=== PATIENT | male | born 1960 | race African-American/Black ===

== ENCOUNTER 2021-07-21 09:35 | Inpatient (IN) ==
[2021-07-21 10:00] LABS: ABS Basophils 0.1 10^3/ul (0-0.2); ABS Eosinophils 0.4 10^3/ul (0-0.6); ABS Lymphocytes 1.6 10^3/ul (1.0-4.8); ABS Monocytes 1.2 10^3/ul (0-0.8); ABS Neutrophils 11.7 10^3/ul (1.5-7.7); Eosinophil % 2.6 %; Hematocrit 41 % (42-52); Hemoglobin 13.6 g/dL (14.0-18.0); Mean Corpuscular HGB Conc 33 g/dL (31-36); Mean Corpuscular Hemoglobin 31 pg (27-31); Mean Corpuscular Volume 94 fL (80-94); Mean Platelet Volume 8.3 fL (7.4-10.4); Nucleated Red Blood Cells % 0.1; Platelet Count 320 10^3/uL (150-450); Red Blood Count 4.42 10^6 /uL (4.18-5.48); Red Cell Distribution Width 14 % (10-15)
[2021-07-21] MEDS ORDERED: nitroGLYCERIN DRIP 25,000 MCG/250 ML BTL IV SCH (10:00)
[2021-07-21 10:06] LABS: INR 1.12 (0.86-1.15)
[2021-07-21 10:19] LABS: ALT 35 U/L (7-52); AST 23 U/L (13-39); Albumin 4.1 g/dL (3.2-5.2); Albumin/Globulin Ratio 1.1 (1-3); Alkaline Phosphatase 55 U/L (35-149); Anion Gap 7 mmol/L (2-11); Blood Urea Nitrogen 14 mg/dL (6-24); CO2 Carbon Dioxide 32 mmol/L (22-32); Calcium 9.1 mg/dL (8.6-10.3); Chloride 97 mmol/L (101-111); Globulin 3.6 g/dL (2-4); Glucose 244 mg/dL (70-100); Potassium 3.8 mmol/L (3.5-5.0); Sodium 136 mmol/L (135-145); Total Protein 7.7 g/dL (6.4-8.9); eGFR CKD-EPI 70.9 (>60)
[2021-07-21 10:20] LABS: Troponin I 0.03 ng/mL (<0.03)
[2021-07-21] MEDS ORDERED: Morphine 4 MG/ML VIAL (1 ml) IV ONE (10:22)
[2021-07-21] MEDS ORDERED: Albuterol/Ipratropium NEB.SOL (2.5/0.5 MG) 3 ML NEB.SOLN INH PRN (11:40)
[2021-07-21] MEDS ORDERED: Iodixanol (CONTRAST) 320 MG/ML 100 ML SDV IV ONE (11:52)
[2021-07-21 12:03] LABS: Magnesium 1.7 mg/dL (1.9-2.7); Phosphorus 4.2 mg/dL (2.5-5.0)
[2021-07-21 12:10] LABS: PCO2 Arterial 62 mmHg (35-45); PO2 Arterial 108 mmHg (80-100)
[2021-07-21] MEDS: methylPREDNISolone SOD 40 mg/ml 1 ml VIAL IV SCH ×2 (12:11→20:27)
[2021-07-21] MEDS: cefTRIAXone 1 gm/50 mL NS BAG 1 GM/50 ML BAG IVPB SCH (12:15)
[2021-07-21 12:23] LABS: TSH Ultra Thyroid Stim Horm 0.75 mcIU/mL (0.34-5.60)
[2021-07-21] MEDS: Azithromycin 500 mg/250 ml NS 500 MG/250 ML BAG IVPB SCH (12:23)
[2021-07-21] MEDS: Enoxaparin 40 MG/0.4 ML SYR SUBCUT SCH (12:23)
[2021-07-21] MEDS ORDERED: Furosemide 40 mg/4 ml IV VIAL IV SLOW PU ONE (12:38)
[2021-07-21] MEDS ORDERED: Magnesium Sulfate 2 gm BAG 2 GM/50 ML BAG IVPB ONE (13:08)
[2021-07-21] MEDS ORDERED: Dextrose 50% Syringe 50 ml 25 GM/50 ML SYRINGE IV PUSH PRN (13:17)
[2021-07-21 13:49] LABS: Troponin I 0.03 ng/mL (<0.03)
[2021-07-21] MEDS: hydrALAZINE 20 mg/ml 1 ML Vial IV IV SLOW PU PRN (17:11)
[2021-07-21] MEDS ORDERED: Norepinephrine 16MCG/ML IVPRE 0 MCG/0 ML BAG IV ONE (18:09)
[2021-07-22] MEDS: hydrALAZINE 20 mg/ml 1 ML Vial IV IV SLOW PU PRN (02:59)
[2021-07-22] MEDS: methylPREDNISolone SOD 40 mg/ml 1 ml VIAL IV SCH (03:01)
[2021-07-22] MEDS ORDERED: Enalaprilat IV 1.25 mg/ml 2 ml VIAL (2.5 MG) IV ONE (04:14)
[2021-07-22 05:51] LABS: ABS Lymphocytes 0.4 10^3/ul (1.0-4.8); ABS Monocytes 0.1 10^3/ul (0-0.8); ABS Neutrophils 11.8 10^3/ul (1.5-7.7); Hematocrit 41 % (42-52); Hemoglobin 13.6 g/dL (14.0-18.0); Lymphocyte % 3.5 %; Mean Corpuscular HGB Conc 33 g/dL (31-36); Mean Corpuscular Hemoglobin 31 pg (27-31); Mean Corpuscular Volume 93 fL (80-94); Mean Platelet Volume 8.4 fL (7.4-10.4); Nucleated Red Blood Cells % 0.1; Platelet Count 255 10^3/uL (150-450); Red Blood Count 4.43 10^6 /uL (4.18-5.48); Red Cell Distribution Width 14 % (10-15); White Blood Count 12.3 10^3/uL (3.5-10.8)
[2021-07-22 06:06] LABS: Magnesium 2.1 mg/dL (1.9-2.7); Potassium 4.7 mmol/L (3.5-5.0)
[2021-07-22 06:12] LABS: Phosphorus 4.3 mg/dL (2.5-5.0)
[2021-07-22 06:26] LABS: eGFR CKD-EPI 82.6 (>60)
[2021-07-22] MEDS: Enoxaparin 40 MG/0.4 ML SYR SUBCUT SCH (10:52)
[2021-07-22] MEDS ORDERED: Furosemide 40 mg/4 ml IV VIAL IV ONE (11:54)
[2021-07-22] MEDS: cefTRIAXone 1 gm/50 mL NS BAG 1 GM/50 ML BAG IVPB SCH (12:41)
[2021-07-22] MEDS: Azithromycin 500 mg/250 ml NS 500 MG/250 ML BAG IVPB SCH (12:45)
[2021-07-23 06:25] LABS: ABS Lymphocytes 0.8 10^3/ul (1.0-4.8); ABS Monocytes 0.9 10^3/ul (0-0.8); ABS Neutrophils 11.5 10^3/ul (1.5-7.7); Hematocrit 39 % (42-52); Hemoglobin 12.7 g/dL (14.0-18.0); Lymphocyte % 6.3 %; Mean Corpuscular HGB Conc 33 g/dL (31-36); Mean Corpuscular Hemoglobin 31 pg (27-31); Mean Corpuscular Volume 94 fL (80-94); Mean Platelet Volume 8.8 fL (7.4-10.4); Nucleated Red Blood Cells % 0.1; Platelet Count 263 10^3/uL (150-450); Red Blood Count 4.14 10^6 /uL (4.18-5.48); Red Cell Distribution Width 14 % (10-15); White Blood Count 13.3 10^3/uL (3.5-10.8)
[2021-07-23 06:38] LABS: Magnesium 2.2 mg/dL (1.9-2.7); Phosphorus 4.6 mg/dL (2.5-5.0); Potassium 4.7 mmol/L (3.5-5.0); eGFR CKD-EPI 67.5 (>60)
[2021-07-23] MEDS: Insulin GLARGINE 100 un/ml 10 ml VIAL SUBCUT SCH (08:53)
[2021-07-23] MEDS ORDERED: Dextrose 50% Syringe 50 ml 25 GM/50 ML SYRINGE IV PUSH PRN (12:08)
[2021-07-23] MEDS ORDERED: Albuterol/Ipratropium RESP(NF) MDI (Combivent Respimat) INH PRN (12:24)
[2021-07-23] MEDS: cefTRIAXone 1 gm/50 mL NS BAG 1 GM/50 ML BAG IVPB SCH (12:54)
[2021-07-23] MEDS: Enoxaparin 40 MG/0.4 ML SYR SUBCUT SCH (12:55)
[2021-07-23] MEDS: Azithromycin 500 mg/250 ml NS 500 MG/250 ML BAG IVPB SCH (13:54)
[2021-07-23] MEDS ORDERED: Senna TAB 8.6 mg TAB PO PRN (17:33)
[2021-07-23] MEDS ORDERED: Polyethylene Glycol 3350 17 GM PACKET PO PRN (17:33)
[2021-07-23] MEDS: HYDROcodone/ACETAMIN 5/325 mg TAB PO PRN (18:14)
[2021-07-24] MEDS: PTO: Budesonide/Formote 160/4.5(NF) MDI INH SCH (07:42)
[2021-07-24 08:33] LABS: Hematocrit 41 % (42-52); Hemoglobin 13.6 g/dL (14.0-18.0); Mean Corpuscular HGB Conc 34 g/dL (31-36); Mean Corpuscular Hemoglobin 31 pg (27-31); Mean Corpuscular Volume 94 fL (80-94); Mean Platelet Volume 8.6 fL (7.4-10.4); Platelet Count 262 10^3/uL (150-450); Red Blood Count 4.34 10^6 /uL (4.18-5.48); Red Cell Distribution Width 14 % (10-15); White Blood Count 9.4 10^3/uL (3.5-10.8)
[2021-07-24 08:56] LABS: Blood Urea Nitrogen 27 mg/dL (6-24); CO2 Carbon Dioxide 35 mmol/L (22-32); Calcium 8.7 mg/dL (8.6-10.3); Chloride 96 mmol/L (101-111); Glucose 223 mg/dL (70-100); Sodium 132 mmol/L (135-145); eGFR CKD-EPI 73.9 (>60)
[2021-07-24] MEDS: Insulin GLARGINE 100 un/ml 10 ml VIAL SUBCUT SCH (08:58)
[2021-07-24 09:01] LABS: Anion Gap 1 mmol/L (2-11)
[2021-07-24 09:15] LABS: Troponin I 0.02 ng/mL (<0.03)
[2021-07-24 10:00] LABS: Magnesium 2.1 mg/dL (1.9-2.7)
[2021-07-24 10:18] LABS: Ferritin 328.2 ng/mL (24-336)
[2021-07-24] MEDS: HYDROcodone/ACETAMIN 5/325 mg TAB PO PRN ×2 (10:50→21:06)
[2021-07-24] MEDS: cefTRIAXone 1 gm/50 mL NS BAG 1 GM/50 ML BAG IVPB SCH (11:07)
[2021-07-24] MEDS: Enoxaparin 40 MG/0.4 ML SYR SUBCUT SCH (11:44)
[2021-07-24] MEDS: Azithromycin 500 mg/250 ml NS 500 MG/250 ML BAG IVPB SCH (11:45)
[2021-07-24 17:35] LABS: Glucose Confirmatory 409 mg/dL (70-100)
[2021-07-25 05:36] LABS: Calcium 8.9 mg/dL (8.6-10.3); Potassium 4.2 mmol/L (3.5-5.0)
[2021-07-25 05:41] LABS: eGFR CKD-EPI 78.1 (>60)
[2021-07-25] MEDS: PTO: Budesonide/Formote 160/4.5(NF) MDI INH SCH (07:24)
[2021-07-25] MEDS: HYDROcodone/ACETAMIN 5/325 mg TAB PO PRN (08:25)
[2021-07-25] MEDS ORDERED: Insulin GLARGINE 100 un/ml 10 ml VIAL SUBCUT SCH (09:00)
[2021-07-25] MEDS: Enoxaparin 40 MG/0.4 ML SYR SUBCUT SCH (12:17)
[2021-07-25] MEDS: cefTRIAXone 1 gm/50 mL NS BAG 1 GM/50 ML BAG IVPB SCH (12:20)
[2021-07-25] MEDS ORDERED: COVID-19 VACCINE, MRNA(MODERNA) BOOSTER/PF 50 MCG/0.25 ML IM ONE (12:30)
[2021-07-25 12:45] VITALS: BP 144/99
[2021-07-27 11:52] LABS: % Iron Saturation 24 % (14 - 50); Total Iron Binding Capacity 263 mcg/dL (250 - 400); Transferrin 223 mg/dL (200 - 360)
== END 2021-07-25 15:20 | disposition home or self-care (01) | DRG 291 ==
LOC: ED 09:35 → EDHOLD 11:43 → SUATTDRO 11:43 → ICU 13:14 → MEDTELE 07-22 15:25
PROVIDERS: ADMIT Internal Medicine Critical Care Medicine; ATTEND Hospitalist

== ENCOUNTER 2021-10-22 16:35 | Inpatient (IN) ==
[2021-10-22 17:07] LABS: ABS Basophils 0.1 10^3/ul (0-0.2); ABS Eosinophils 0.2 10^3/ul (0-0.6); ABS Lymphocytes 0.7 10^3/ul (1.0-4.8); ABS Monocytes 0.5 10^3/ul (0-0.8); ABS Neutrophils 6.3 10^3/ul (1.5-7.7); Eosinophil % 2.2 %; Hematocrit 35 % (42-52); Hemoglobin 11.5 g/dL (14.0-18.0); Lymphocyte % 9.2 %; Mean Corpuscular HGB Conc 33 g/dL (31-36); Mean Corpuscular Hemoglobin 30 pg (27-31); Mean Corpuscular Volume 91 fL (80-94); Mean Platelet Volume 8.5 fL (7.4-10.4); Nucleated Red Blood Cells % 0.1; Platelet Count 217 10^3/uL (150-450); Red Blood Count 3.83 10^6 /uL (4.18-5.48); Red Cell Distribution Width 13 % (10-15); White Blood Count 7.7 10^3/uL (3.5-10.8)
[2021-10-22 17:13] LABS: INR 1.21 (0.86-1.15)
[2021-10-22 17:36] LABS: Albumin 4.1 g/dL (3.2-5.2); Albumin/Globulin Ratio 1.4 (1-3); Calcium 9.1 mg/dL (8.6-10.3); Potassium 4.2 mmol/L (3.5-5.0); Total Bilirubin 1.4 mg/dL (0.2-1.0); Total Protein 7.1 g/dL (6.4-8.9); eGFR CKD-EPI 65.1 (>60)
[2021-10-22 18:31] LABS: High Sensitivity Troponin 1 Hr 12 pg/mL (<20)
[2021-10-22] MEDS ORDERED: Iodixanol (CONTRAST) 320 MG/ML 100 ML SDV IV ONE (18:39)
[2021-10-22] MEDS ORDERED: Furosemide 20 mg/2 ml IV VIAL IV SLOW PU ONE ×2 (20:19→23:36)
[2021-10-22] MEDS ORDERED: Enoxaparin 40 MG/0.4 ML SYR SUBCUT SCH (23:00)
[2021-10-22] MEDS ORDERED: Albuterol HFA INHALER 8 gm MDI INH PRN (23:30)
[2021-10-23 06:07] LABS: ABS Eosinophils 0.2 10^3/ul (0-0.6); ABS Lymphocytes 0.9 10^3/ul (1.0-4.8); ABS Monocytes 0.5 10^3/ul (0-0.8); ABS Neutrophils 4.3 10^3/ul (1.5-7.7); Eosinophil % 3.9 %; Hematocrit 35 % (42-52); Hemoglobin 11.7 g/dL (14.0-18.0); Lymphocyte % 15.4 %; Mean Corpuscular HGB Conc 33 g/dL (31-36); Mean Corpuscular Hemoglobin 30 pg (27-31); Mean Corpuscular Volume 90 fL (80-94); Mean Platelet Volume 8.5 fL (7.4-10.4); Nucleated Red Blood Cells % 0.1; Platelet Count 202 10^3/uL (150-450); Red Blood Count 3.91 10^6 /uL (4.18-5.48); Red Cell Distribution Width 13 % (10-15)
[2021-10-23 06:37] LABS: Calcium 9.2 mg/dL (8.6-10.3); Magnesium 1.7 mg/dL (1.9-2.7); Potassium 3.9 mmol/L (3.5-5.0); eGFR CKD-EPI 65.1 (>60)
[2021-10-23] MEDS: Mometasone/Formoter 100/5 MDI INH SCH ×2 (08:32→19:50)
[2021-10-23] MEDS ORDERED: NFT: Empaglifozin 10 mg TAB (NF) PO SCH (09:00)
[2021-10-23] MEDS ORDERED: Furosemide 40 mg/4 ml IV VIAL IV SCH (09:00)
[2021-10-23] MEDS ORDERED: Aspirin EC 81 mg TAB.EC (enteric coated) PO SCH (09:00)
[2021-10-23] MEDS ORDERED: DULoxetine DR 30 mg CAP PO SCH (09:00)
[2021-10-23] MEDS ORDERED: Perflutren Lipid Microsphere 3 ML VIAL ONE (10:27)
[2021-10-23 15:53] VITALS: BP 156/94
== END 2021-10-23 17:40 | disposition home or self-care (01) | DRG 194 ==
LOC: ED 16:35 → MED 22:07 → SUATTDRO 22:07 → MED 23:21
PROVIDERS: ADMIT Internal Medicine; ATTEND Internal Medicine

== ENCOUNTER 2022-09-09 11:56 | Inpatient (IN) ==
[2022-09-09] MEDS ORDERED: cefTRIAXone 1 gm/50 mL D5W 1 GM/50 ML BAG IV ONE (12:03)
[2022-09-09] MEDS ORDERED: Albuterol/Ipratropium NEB.SOL (2.5/0.5 MG) 3 ML NEB.SOLN INH ONE (12:03)
[2022-09-09] MEDS ORDERED: Azithromycin 500 mg/250 ml NS 500 MG/250 ML BAG IVPB ONE (12:03)
[2022-09-09 12:16] LABS: ABS Eosinophils 0.1 10^3/ul (0-0.6); ABS Lymphocytes 0.7 10^3/ul (1.0-4.8); ABS Monocytes 0.6 10^3/ul (0-0.8); ABS Neutrophils 6.7 10^3/ul (1.5-7.7); Eosinophil % 1.6 %; Hematocrit 40 % (42-52); Hemoglobin 12.5 g/dL (14.0-18.0); Lymphocyte % 8.3 %; Mean Corpuscular HGB Conc 31 g/dL (31-36); Mean Corpuscular Hemoglobin 28 pg (27-31); Mean Corpuscular Volume 90 fL (80-94); Mean Platelet Volume 9.1 fL (7.4-10.4); Platelet Count 207 10^3/uL (150-450); Red Cell Distribution Width 15 % (10-15); White Blood Count 8.2 10^3/uL (3.5-10.8)
[2022-09-09 12:19] LABS: PCO2 Arterial 61 mmHg (35-45); PO2 Arterial 221 mmHg (80-100)
[2022-09-09 12:41] LABS: High Sens Troponin Baseline 18 pg/mL (<20)
[2022-09-09 12:50] LABS: ALT 15 U/L (7-52); AST 16 U/L (13-39); Albumin 4.1 g/dL (3.2-5.2); Albumin/Globulin Ratio 1.4 (1-3); Alkaline Phosphatase 51 U/L (35-149); Blood Urea Nitrogen 12 mg/dL (6-24); C Reactive Protein 8.59 mg/L (<8.01); CO2 Carbon Dioxide 39 mmol/L (22-32); Calcium 8.9 mg/dL (8.6-10.3); Chloride 100 mmol/L (101-111); Creatinine, Serum 1.23 mg/dL (0.67-1.17); Globulin 2.9 g/dL (2-4); Glucose 94 mg/dL (70-100); Magnesium 1.9 mg/dL (1.9-2.7); Potassium 4.2 mmol/L (3.5-5.0); Sodium 139 mmol/L (135-145); eGFR CKD-EPI 66.4 (>60)
[2022-09-09] MEDS ORDERED: Iodixanol (CONTRAST) 320 MG/ML 100 ML SDV IV ONE (13:10)
[2022-09-09 13:49] LABS: High Sensitivity Troponin 1 Hr 17 pg/mL (<20)
[2022-09-09] MEDS ORDERED: Furosemide 40 mg/4 ml IV VIAL IV ONE ×2 (15:20→20:00)
[2022-09-09] MEDS: Enoxaparin 40 MG/0.4 ML SYR SUBCUT SCH (20:10)
[2022-09-09 23:16] LABS: Calcium 9.1 mg/dL (8.6-10.3); Creatinine, Serum 1.35 mg/dL (0.67-1.17); Magnesium 1.8 mg/dL (1.9-2.7); Potassium 4.4 mmol/L (3.5-5.0); eGFR CKD-EPI 59.4 (>60)
[2022-09-09] MEDS ORDERED: Magnesium Sulfate 2 gm BAG 2 GM/50 ML BAG IVPB ONE (23:29)
[2022-09-09] MEDS: Mometasone/Formoter 200/5 MDI INH SCH (23:53)
[2022-09-10 06:59] LABS: ABS Lymphocytes 0.4 10^3/ul (1.0-4.8); ABS Monocytes 0.4 10^3/ul (0-0.8); ABS Neutrophils 6.4 10^3/ul (1.5-7.7); Hematocrit 39 % (42-52); Hemoglobin 12.4 g/dL (14.0-18.0); Lymphocyte % 5.1 %; Mean Corpuscular HGB Conc 32 g/dL (31-36); Mean Corpuscular Hemoglobin 29 pg (27-31); Mean Corpuscular Volume 90 fL (80-94); Mean Platelet Volume 9.6 fL (7.4-10.4); Platelet Count 227 10^3/uL (150-450); Red Blood Count 4.28 10^6 /uL (4.18-5.48); Red Cell Distribution Width 15 % (10-15); White Blood Count 7.2 10^3/uL (3.5-10.8)
[2022-09-10 07:24] LABS: Calcium 9.2 mg/dL (8.6-10.3); Creatinine, Serum 1.42 mg/dL (0.67-1.17); Magnesium 2.3 mg/dL (1.9-2.7); Potassium 4.4 mmol/L (3.5-5.0); eGFR CKD-EPI 55.9 (>60)
[2022-09-10] MEDS: Mometasone/Formoter 200/5 MDI INH SCH ×2 (08:37→20:05)
[2022-09-10] MEDS: DULoxetine DR 30 mg CAP PO SCH (09:28)
[2022-09-10] MEDS: HYDROcodone/ACETAMIN 5/325 mg TAB PO PRN ×3 (09:29→20:32)
[2022-09-10] MEDS ORDERED: Furosemide 40 mg/4 ml IV VIAL IV ONE (09:37)
[2022-09-10] MEDS ORDERED: Sulfur Hexaflouride MICROSPHR 25 MG VIAL ONE (13:20)
[2022-09-10] MEDS ORDERED: NF: Albuterol/Ipratropium RESP(NF) MDI (Combivent Respimat) INH PRN (14:51)
[2022-09-10] MEDS ORDERED: Albuterol HFA INHALER 8 gm MDI INH PRN (15:30)
[2022-09-10] MEDS: Enoxaparin 40 MG/0.4 ML SYR SUBCUT SCH (18:34)
[2022-09-11 06:05] LABS: Hematocrit 37 % (42-52); Hemoglobin 12.3 g/dL (14.0-18.0); Mean Corpuscular HGB Conc 33 g/dL (31-36); Mean Corpuscular Hemoglobin 30 pg (27-31); Mean Corpuscular Volume 90 fL (80-94); Mean Platelet Volume 9.6 fL (7.4-10.4); Platelet Count 214 10^3/uL (150-450); Red Blood Count 4.15 10^6 /uL (4.18-5.48); Red Cell Distribution Width 15 % (10-15); White Blood Count 7.5 10^3/uL (3.5-10.8)
[2022-09-11 06:21] LABS: Blood Urea Nitrogen 26 mg/dL (6-24); CO2 Carbon Dioxide 40 mmol/L (22-32); Chloride 99 mmol/L (101-111); Creatinine, Serum 1.31 mg/dL (0.67-1.17); Glucose 118 mg/dL (70-100); Magnesium 2.3 mg/dL (1.9-2.7); Potassium 4.4 mmol/L (3.5-5.0); Sodium 139 mmol/L (135-145); eGFR CKD-EPI 61.5 (>60)
[2022-09-11] MEDS: Mometasone/Formoter 200/5 MDI INH SCH ×2 (08:13→19:36)
[2022-09-11] MEDS: DULoxetine DR 30 mg CAP PO SCH (08:46)
[2022-09-11] MEDS: HYDROcodone/ACETAMIN 5/325 mg TAB PO PRN ×2 (08:46→20:33)
[2022-09-11 10:51] LABS: % Iron Saturation 16 % (15-55); Iron 58 ug/dL (50-212); Total Iron Binding Capacity 363 mcg/dL (250-450); Transferrin 259 mg/dL (203-362); Unsaturated Iron Binding 305 ug/dL
[2022-09-11 11:01] LABS: TSH Ultra Thyroid Stim Horm 1.35 mcIU/mL (0.34-5.60)
[2022-09-11 11:06] LABS: Free T4 0.83 ng/dL (0.61-1.12)
[2022-09-11 11:09] LABS: Ferritin 100.7 ng/mL (24-336)
[2022-09-11] MEDS: Bumetanide IV 0.25 MG/ML 4 ml VIAL (1 mg) IV SLOW PU SCH ×2 (11:10→20:21)
[2022-09-11] MEDS: Enoxaparin 40 MG/0.4 ML SYR SUBCUT SCH (20:19)
[2022-09-11] MEDS ORDERED: Bumetanide IV 0.25 MG/ML 4 ml VIAL (1 mg) IV SLOW PU SCH (21:00)
[2022-09-12 07:07] LABS: ABS Eosinophils 0.1 10^3/ul (0-0.6); ABS Monocytes 0.7 10^3/ul (0-0.8); ABS Neutrophils 4.4 10^3/ul (1.5-7.7); Eosinophil % 2.4 %; Hematocrit 40 % (42-52); Hemoglobin 12.6 g/dL (14.0-18.0); Lymphocyte % 15.7 %; Mean Corpuscular HGB Conc 32 g/dL (31-36); Mean Corpuscular Hemoglobin 29 pg (27-31); Mean Corpuscular Volume 91 fL (80-94); Mean Platelet Volume 9.4 fL (7.4-10.4); Platelet Count 210 10^3/uL (150-450); Red Cell Distribution Width 15 % (10-15); White Blood Count 6.2 10^3/uL (3.5-10.8)
[2022-09-12 07:10] LABS: Calcium 8.8 mg/dL (8.6-10.3); Creatinine, Serum 1.2 mg/dL (0.67-1.17); Potassium 4.4 mmol/L (3.5-5.0); eGFR CKD-EPI 68.4 (>60)
[2022-09-12] MEDS: Mometasone/Formoter 200/5 MDI INH SCH ×2 (07:26→21:05)
[2022-09-12] MEDS: HYDROcodone/ACETAMIN 5/325 mg TAB PO PRN ×2 (09:37→20:29)
[2022-09-12] MEDS: DULoxetine DR 30 mg CAP PO SCH (09:37)
[2022-09-12] MEDS: Bumetanide IV 0.25 MG/ML 4 ml VIAL (1 mg) IV SLOW PU SCH ×2 (09:43→20:29)
[2022-09-12] MEDS: Enoxaparin 40 MG/0.4 ML SYR SUBCUT SCH (20:29)
[2022-09-13 06:29] LABS: Calcium 8.9 mg/dL (8.6-10.3); Creatinine, Serum 1.28 mg/dL (0.67-1.17); Potassium 4.5 mmol/L (3.5-5.0); eGFR CKD-EPI 63.3 (>60)
[2022-09-13] MEDS: Mometasone/Formoter 200/5 MDI INH SCH ×2 (07:33→19:26)
[2022-09-13] MEDS: Bumetanide IV 0.25 MG/ML 4 ml VIAL (1 mg) IV SLOW PU SCH (08:36)
[2022-09-13] MEDS: DULoxetine DR 30 mg CAP PO SCH (08:36)
[2022-09-13] MEDS: HYDROcodone/ACETAMIN 5/325 mg TAB PO PRN ×2 (08:49→20:42)
[2022-09-13] MEDS: Iron Sucrose 200 MG in NS 0.9% 100 ml BAG 100 ML IVPB SCH (17:45)
[2022-09-13] MEDS: Enoxaparin 40 MG/0.4 ML SYR SUBCUT SCH (20:37)
[2022-09-14 06:16] LABS: Calcium 9.1 mg/dL (8.6-10.3); Creatinine, Serum 1.18 mg/dL (0.67-1.17); Magnesium 2.1 mg/dL (1.9-2.7); Potassium 4.5 mmol/L (3.5-5.0); eGFR CKD-EPI 69.8 (>60)
[2022-09-14] MEDS: Mometasone/Formoter 200/5 MDI INH SCH ×2 (07:47→19:31)
[2022-09-14] MEDS: Iron Sucrose 200 MG in NS 0.9% 100 ml BAG 100 ML IVPB SCH (08:52)
[2022-09-14] MEDS: DULoxetine DR 30 mg CAP PO SCH (08:53)
[2022-09-14] MEDS: HYDROcodone/ACETAMIN 5/325 mg TAB PO PRN (08:54)
[2022-09-14] MEDS ORDERED: HYDROcodone/ACETAMIN 5/325 mg TAB PO PRN (13:31)
[2022-09-14] MEDS: Enoxaparin 40 MG/0.4 ML SYR SUBCUT SCH (19:25)
[2022-09-15 05:53] LABS: ABS Eosinophils 0.1 10^3/ul (0-0.6); ABS Lymphocytes 0.9 10^3/ul (1.0-4.8); ABS Monocytes 0.7 10^3/ul (0-0.8); ABS Neutrophils 5.2 10^3/ul (1.5-7.7); Eosinophil % 1.9 %; Hematocrit 39 % (42-52); Hemoglobin 12.9 g/dL (14.0-18.0); Lymphocyte % 13.2 %; Mean Corpuscular HGB Conc 33 g/dL (31-36); Mean Corpuscular Hemoglobin 30 pg (27-31); Mean Corpuscular Volume 90 fL (80-94); Platelet Count 213 10^3/uL (150-450); Red Blood Count 4.36 10^6 /uL (4.18-5.48); Red Cell Distribution Width 15 % (10-15); White Blood Count 7.1 10^3/uL (3.5-10.8)
[2022-09-15 06:09] LABS: Calcium 9.1 mg/dL (8.6-10.3); Creatinine, Serum 1.23 mg/dL (0.67-1.17); Magnesium 2.1 mg/dL (1.9-2.7); Potassium 4.4 mmol/L (3.5-5.0); eGFR CKD-EPI 66.4 (>60)
[2022-09-15] MEDS: Mometasone/Formoter 200/5 MDI INH SCH ×2 (07:20→19:20)
[2022-09-15] MEDS: DULoxetine DR 30 mg CAP PO SCH (10:04)
[2022-09-15] MEDS: Iron Sucrose 200 MG in NS 0.9% 100 ml BAG 100 ML IVPB SCH (10:08)
[2022-09-15 14:08] VITALS: BP 121/78
== END 2022-09-15 17:05 | disposition home or self-care (01) | DRG 291 ==
LOC: ED 11:56 → SUATTDRO 17:17 → EDHOLD 17:17 → MEDTELE 21:21
PROVIDERS: ADMIT Surgery; ATTEND Internal Medicine

== ENCOUNTER 2023-01-24 20:11 | Inpatient (IN) ==
[2023-01-24 21:07] LABS: ABS Eosinophils 0.3 10^3/uL (0.0-0.5); ABS Lymphocytes 1.2 10^3/uL (1.0-4.8); ABS Monocytes 1.1 10^3/uL (0.0-1.1); ABS Neutrophils 6.1 10^3/uL (1.5-7.6); ABS Nucleated RBC 0.02 10^3/ul; Eosinophil % 3.2 %; Hemoglobin 14.3 g/dL (13.2-16.3); Mean Corpuscular Hemoglobin 31.1 pg (27-33); Mean Corpuscular Hgb Conc 32.5 g/dL (31-36); Mean Corpuscular Volume 95.7 fL (80-97); Mean Platelet Volume 9.3 fL (7.5-11.2); Nucleated Red Blood Cells % 0.3 /100 WBC (0.0-0.4); Platelet Count 160 10^3/uL (150-450); Red Blood Count 4.59 10^6/uL (4.06-5.63); Red Cell Distribution Width 14.8 % (12-17); White Blood Count 8.8 10^3/uL (3.6-10.2)
[2023-01-24 21:35] LABS: Albumin 3.8 g/dL (3.2-5.2); Calcium 8.9 mg/dL (8.6-10.3); Total Bilirubin 0.7 mg/dL (0.2-1.0)
[2023-01-24 21:40] LABS: Albumin/Globulin Ratio 1.2 (1-3); Globulin 3.1 g/dL (2-4); Total Protein 6.9 g/dL (6.4-8.9)
[2023-01-24 21:43] LABS: Creatinine, Serum 1.59 mg/dL (0.67-1.17); Potassium 4.5 mmol/L (3.5-5.0); eGFR CKD-EPI 48.5 (>60)
[2023-01-24 22:32] LABS: High Sensitivity Troponin 1 Hr 27 pg/mL (<20)
[2023-01-24] MEDS ORDERED: Furosemide 100 mg/10 ml IV VIAL IV ONE (23:20)
[2023-01-24] MEDS ORDERED: Morphine 4 MG/ML VIAL (1 ml) IV ONE (23:55)
[2023-01-25] MEDS ORDERED: PAIN RELIEVING RUB (MENTHOL/SALICYLATE) 1 APPLIC TUBE TOPICAL PRN (00:17)
[2023-01-25] MEDS ORDERED: Morphine 4 MG/ML VIAL (1 ml) IV ONE (00:31)
[2023-01-25] MEDS ORDERED: Albuterol/Ipratropium RESP(NF) MDI (Combivent Respimat) INH PRN (00:47)
[2023-01-25] MEDS ORDERED: Albuterol/Ipratropium NEB.SOL (2.5/0.5 MG) 3 ML NEB.SOLN INH PRN (00:47)
[2023-01-25] MEDS ORDERED: Budesonide/Formote 160/4.5(NF) MDI INH SCH (01:00)
[2023-01-25] MEDS: oxyCODONE/Acetamin 5/325 mg TAB PO PRN ×4 (02:59→21:40)
[2023-01-25] MEDS: Mometasone/Formoter 200/5 MDI INH SCH ×2 (03:03→19:30)
[2023-01-25] MEDS: Enoxaparin 40 MG/0.4 ML SYR SUBCUT SCH (07:53)
[2023-01-25 07:55] LABS: ABS Basophils 0.1 10^3/uL (0.0-0.1); ABS Eosinophils 0.3 10^3/uL (0.0-0.5); ABS Lymphocytes 1.4 10^3/uL (1.0-4.8); ABS Monocytes 1.3 10^3/uL (0.0-1.1); ABS Neutrophils 6.4 10^3/uL (1.5-7.6); ABS Nucleated RBC 0.02 10^3/ul; Eosinophil % 3.2 %; Hematocrit 40.5 % (38-53); Hemoglobin 13.7 g/dL (13.2-16.3); Lymphocyte % 14.8 %; Mean Corpuscular Hemoglobin 30.6 pg (27-33); Mean Corpuscular Hgb Conc 33.9 g/dL (31-36); Mean Corpuscular Volume 90.3 fL (80-97); Mean Platelet Volume 9.1 fL (7.5-11.2); Nucleated Red Blood Cells % 0.2 /100 WBC (0.0-0.4); Platelet Count 197 10^3/uL (150-450); Red Blood Count 4.48 10^6/uL (4.06-5.63); Red Cell Distribution Width 14.5 % (12-17); White Blood Count 9.4 10^3/uL (3.6-10.2)
[2023-01-25] MEDS ORDERED: Bumetanide IV 0.25 MG/ML 4 ml VIAL (1 mg) IV SLOW PU SCH (08:00)
[2023-01-25] MEDS: DULoxetine DR 30 mg CAP PO SCH (08:02)
[2023-01-25] MEDS: Cholecalciferol (VIT D3) 1,000 unit TAB PO SCH (08:02)
[2023-01-25] MEDS: Lidocaine PATCH 5% PATCH TRANSDERM SCH (08:03)
[2023-01-25 08:07] LABS: Albumin 3.7 g/dL (3.2-5.2); Albumin/Globulin Ratio 1.1 (1-3); Calcium 8.7 mg/dL (8.6-10.3); Creatinine, Serum 1.5 mg/dL (0.67-1.17); Globulin 3.4 g/dL (2-4); Magnesium 1.9 mg/dL (1.9-2.7); Potassium 3.7 mmol/L (3.5-5.0); Total Bilirubin 0.7 mg/dL (0.2-1.0); Total Protein 7.1 g/dL (6.4-8.9); Uric Acid 8.5 mg/dL (4.4-7.6)
[2023-01-25] MEDS ORDERED: Insulin GLARGINE 100 un/ml 10 ml VIAL SUBCUT SCH ×2 (09:00)
[2023-01-25] MEDS ORDERED: Ondansetron ODT 4 mg TAB 4 MG TAB SL PRN (10:43)
[2023-01-25] MEDS ORDERED: Acetaminophen IV 1 GM/100ML 1,000 MG/100 ML BAG IV ONE (10:44)
[2023-01-25] MEDS ORDERED: HYDROmorphone 1 MG/1 ML SYRINGE IV SLOW PU PRN (11:07)
[2023-01-25] MEDS ORDERED: Pentafluoroprop/Tetrafluoro 1 SPRAY TOP.SPRAY TOPICAL ONE (12:45)
[2023-01-25 14:05] LABS: C Reactive Protein 65.55 mg/L (<8.01)
[2023-01-25 14:52] LABS: Body Fluid WBC 41658 /mcL
[2023-01-25 15:01] LABS: Body Fluid Source Synovial Fluid
[2023-01-25 15:02] LABS: Body Fluid Appearance Cloudy; Body Fluid Color Yellow
[2023-01-25 15:08] LABS: Body Fluid Mono 5 %; Body Fluid Total Cells Counted 200
[2023-01-25] MEDS ORDERED: Vancomycin per Pharmacy 1 EA NOTE FOLLOW UP PRN (16:51)
[2023-01-25] MEDS ORDERED: Vancomycin 2,000 MG in NS 0.9% 500 ml BAG 500 ML IVPB ONE (17:00)
[2023-01-25] MEDS ORDERED: Vancomycin 1,000 MG in NS 0.9% 250 ml 250 ML IVPB SCH (17:00)
[2023-01-25] MEDS: cefTRIAXone 2 gm/50 mL D5W 2 GM/50 ML BAG IV SCH (18:06)
[2023-01-25] MEDS: Polyethylene Glycol 3350 17 GM PACKET PO SCH (20:53)
[2023-01-26] MEDS: cefTRIAXone 2 gm/50 mL D5W 2 GM/50 ML BAG IV SCH ×3 (05:04→17:55)
[2023-01-26 07:09] LABS: ABS Basophils 0.1 10^3/uL (0.0-0.1); ABS Eosinophils 0.2 10^3/uL (0.0-0.5); ABS Lymphocytes 0.9 10^3/uL (1.0-4.8); ABS Monocytes 0.8 10^3/uL (0.0-1.1); ABS Neutrophils 5.3 10^3/uL (1.5-7.6); Eosinophil % 2.9 %; Hematocrit 40.1 % (38-53); Hemoglobin 13.3 g/dL (13.2-16.3); Lymphocyte % 12.1 %; Mean Corpuscular Hemoglobin 30.4 pg (27-33); Mean Corpuscular Hgb Conc 33.1 g/dL (31-36); Mean Corpuscular Volume 91.9 fL (80-97); Mean Platelet Volume 9.1 fL (7.5-11.2); Platelet Count 206 10^3/uL (150-450); Red Blood Count 4.36 10^6/uL (4.06-5.63); Red Cell Distribution Width 14.5 % (12-17); White Blood Count 7.3 10^3/uL (3.6-10.2)
[2023-01-26] MEDS: Mometasone/Formoter 200/5 MDI INH SCH ×2 (07:23→19:45)
[2023-01-26 07:24] LABS: Calcium 8.4 mg/dL (8.6-10.3); Creatinine, Serum 1.39 mg/dL (0.67-1.17); Magnesium 1.8 mg/dL (1.9-2.7); Potassium 3.7 mmol/L (3.5-5.0)
[2023-01-26] MEDS ORDERED: Potassium EFFERVES 25 meq TAB PO ONE ×2 (07:33→14:06)
[2023-01-26] MEDS ORDERED: Magnesium Sulfate 2 gm BAG 2 GM/50 ML BAG IVPB ONE (07:34)
[2023-01-26 08:04] LABS: TSH Ultra Thyroid Stim Horm 0.95 mcIU/mL (0.34-5.60)
[2023-01-26] MEDS: Lidocaine PATCH 5% PATCH TRANSDERM SCH (08:10)
[2023-01-26] MEDS: Enoxaparin 40 MG/0.4 ML SYR SUBCUT SCH ×2 (08:19→16:24)
[2023-01-26] MEDS: Cholecalciferol (VIT D3) 1,000 unit TAB PO SCH ×2 (08:20→16:23)
[2023-01-26] MEDS: DULoxetine DR 30 mg CAP PO SCH ×2 (09:45→16:23)
[2023-01-26] MEDS: KCL 20 MEQ/100 ML IVPREMIX 20 MEQ/100 ML BAG IV SCH ×2 (09:52→13:09)
[2023-01-26] MEDS: Polyethylene Glycol 3350 17 GM PACKET PO SCH (10:04)
[2023-01-26 11:37] LABS: C Reactive Protein 82.88 mg/L (<8.01)
[2023-01-26] MEDS ORDERED: Vancomycin 2,000 MG in NS 0.9% 500 ml BAG 500 ML IVPB SCH (13:00)
[2023-01-26] MEDS: oxyCODONE/Acetamin 5/325 mg TAB PO PRN (16:17)
[2023-01-27] MEDS: cefTRIAXone 2 gm/50 mL D5W 2 GM/50 ML BAG IV SCH ×3 (05:21→17:34)
[2023-01-27 07:11] LABS: C Reactive Protein 77.74 mg/L (<8.01); Calcium 8.4 mg/dL (8.6-10.3); Creatinine, Serum 1.4 mg/dL (0.67-1.17); Magnesium 1.9 mg/dL (1.9-2.7); Potassium 4.1 mmol/L (3.5-5.0); eGFR CKD-EPI 56.5 (>60)
[2023-01-27] MEDS: Mometasone/Formoter 200/5 MDI INH SCH ×2 (07:20→20:53)
[2023-01-27 08:09] LABS: ABS Basophils 0.1 10^3/uL (0.0-0.1); ABS Eosinophils 0.2 10^3/uL (0.0-0.5); ABS Lymphocytes 0.9 10^3/uL (1.0-4.8); ABS Monocytes 0.9 10^3/uL (0.0-1.1); ABS Nucleated RBC 0.02 10^3/ul; Eosinophil % 3.3 %; Hematocrit 39.8 % (38-53); Hemoglobin 13.3 g/dL (13.2-16.3); Mean Corpuscular Hemoglobin 30.5 pg (27-33); Mean Corpuscular Hgb Conc 33.5 g/dL (31-36); Mean Corpuscular Volume 90.8 fL (80-97); Nucleated Red Blood Cells % 0.3 /100 WBC (0.0-0.4); Platelet Count 209 10^3/uL (150-450); Red Blood Count 4.38 10^6/uL (4.06-5.63); Red Cell Distribution Width 14.2 % (12-17); White Blood Count 7.1 10^3/uL (3.6-10.2)
[2023-01-27] MEDS: Lidocaine PATCH 5% PATCH TRANSDERM SCH (10:32)
[2023-01-27] MEDS: oxyCODONE/Acetamin 5/325 mg TAB PO PRN ×2 (10:32→19:28)
[2023-01-27] MEDS ORDERED: Dextrose 50% Syringe 50 ml 25 GM/50 ML SYRINGE IV PUSH PRN (11:06)
[2023-01-27] MEDS: Enoxaparin 40 MG/0.4 ML SYR SUBCUT SCH (13:58)
[2023-01-27] MEDS: Cholecalciferol (VIT D3) 1,000 unit TAB PO SCH (13:58)
[2023-01-27] MEDS: DULoxetine DR 30 mg CAP PO SCH (13:58)
[2023-01-27] MEDS: Polyethylene Glycol 3350 17 GM PACKET PO SCH (14:08)
[2023-01-28] MEDS: cefTRIAXone 2 gm/50 mL D5W 2 GM/50 ML BAG IV SCH ×2 (05:51→16:55)
[2023-01-28 06:59] LABS: ABS Eosinophils 0.2 10^3/uL (0.0-0.5); ABS Lymphocytes 0.9 10^3/uL (1.0-4.8); ABS Monocytes 0.7 10^3/uL (0.0-1.1); ABS Neutrophils 4.4 10^3/uL (1.5-7.6); Eosinophil % 3.5 %; Hemoglobin 13.2 g/dL (13.2-16.3); Lymphocyte % 13.7 %; Mean Corpuscular Hemoglobin 30.5 pg (27-33); Mean Corpuscular Hgb Conc 32.9 g/dL (31-36); Mean Corpuscular Volume 92.6 fL (80-97); Mean Platelet Volume 8.7 fL (7.5-11.2); Platelet Count 224 10^3/uL (150-450); Red Blood Count 4.32 10^6/uL (4.06-5.63); Red Cell Distribution Width 14.6 % (12-17); White Blood Count 6.2 10^3/uL (3.6-10.2)
[2023-01-28 07:24] LABS: C Reactive Protein 52.61 mg/L (<8.01); Calcium 8.7 mg/dL (8.6-10.3); Creatinine, Serum 1.34 mg/dL (0.67-1.17); Magnesium 1.8 mg/dL (1.9-2.7); Potassium 4.2 mmol/L (3.5-5.0); eGFR CKD-EPI 59.5 (>60)
[2023-01-28] MEDS ORDERED: Magnesium Sulfate 2 gm BAG 2 GM/50 ML BAG IVPB ONE (07:42)
[2023-01-28] MEDS: DULoxetine DR 30 mg CAP PO SCH (07:53)
[2023-01-28] MEDS: Cholecalciferol (VIT D3) 1,000 unit TAB PO SCH (07:53)
[2023-01-28] MEDS: Lidocaine PATCH 5% PATCH TRANSDERM SCH (07:54)
[2023-01-28] MEDS: oxyCODONE/Acetamin 5/325 mg TAB PO PRN ×4 (07:54→22:38)
[2023-01-28] MEDS: Enoxaparin 40 MG/0.4 ML SYR SUBCUT SCH (07:56)
[2023-01-28] MEDS: Mometasone/Formoter 200/5 MDI INH SCH ×2 (07:57→19:40)
[2023-01-28] MEDS: Polyethylene Glycol 3350 17 GM PACKET PO SCH (08:01)
[2023-01-28] MEDS ORDERED: Acetaminophen IV 1 GM/100ML 1,000 MG/100 ML BAG IV ONE (10:21)
[2023-01-28] MEDS ORDERED: Vancomycin Trough Check NOTE FOLLOW UP ONE (12:30)
[2023-01-28] MEDS: Insulin GLARGINE 100 un/ml 10 ml VIAL SUBCUT SCH (20:43)
[2023-01-29 00:24] LABS: B. burgdorferi PCR Negative (Negative); B. garinii/B. afzellii PCR Negative (Negative)
[2023-01-29] MEDS: cefTRIAXone 2 gm/50 mL D5W 2 GM/50 ML BAG IV SCH ×2 (05:34→18:07)
[2023-01-29] MEDS: Mometasone/Formoter 200/5 MDI INH SCH ×2 (07:32→19:49)
[2023-01-29] MEDS: oxyCODONE/Acetamin 5/325 mg TAB PO PRN ×2 (08:46→19:48)
[2023-01-29] MEDS: Cholecalciferol (VIT D3) 1,000 unit TAB PO SCH (08:46)
[2023-01-29] MEDS: DULoxetine DR 30 mg CAP PO SCH (08:46)
[2023-01-29] MEDS: Insulin GLARGINE 100 un/ml 10 ml VIAL SUBCUT SCH (08:48)
[2023-01-29] MEDS: Lidocaine PATCH 5% PATCH TRANSDERM SCH (08:49)
[2023-01-29] MEDS: Enoxaparin 40 MG/0.4 ML SYR SUBCUT SCH (08:49)
[2023-01-29] MEDS: Polyethylene Glycol 3350 17 GM PACKET PO SCH (08:52)
[2023-01-30] MEDS: cefTRIAXone 2 gm/50 mL D5W 2 GM/50 ML BAG IV SCH (06:15)
[2023-01-30] MEDS: Mometasone/Formoter 200/5 MDI INH SCH (07:13)
[2023-01-30] MEDS: Cholecalciferol (VIT D3) 1,000 unit TAB PO SCH (08:55)
[2023-01-30] MEDS: Enoxaparin 40 MG/0.4 ML SYR SUBCUT SCH (08:56)
[2023-01-30] MEDS: DULoxetine DR 30 mg CAP PO SCH (08:56)
[2023-01-30] MEDS: Insulin GLARGINE 100 un/ml 10 ml VIAL SUBCUT SCH (08:57)
[2023-01-30] MEDS: oxyCODONE/Acetamin 5/325 mg TAB PO PRN ×2 (08:57→15:09)
[2023-01-30] MEDS: Lidocaine PATCH 5% PATCH TRANSDERM SCH (08:59)
[2023-01-30] MEDS: Polyethylene Glycol 3350 17 GM PACKET PO SCH (08:59)
[2023-01-30 10:22] VITALS: BP 121/81
== END 2023-01-30 15:30 | disposition home or self-care (01) | DRG 553 ==
LOC: EDHOLD 20:11 → ED 20:11 → SUATTDRO 23:42 → MEDTELE 01-25 01:30
PROVIDERS: ADMIT Internal Medicine; ATTEND Internal Medicine